=== PATIENT | male | born 1955 | race Caucasian/White ===

== ENCOUNTER → 2020-02-26 09:40 | Outpatient (BNVA) | payer OTHER, SELFPAY | PROVIDERS: Family Provider Nurse Practitioner; PCP Nurse Practitioner; Visit Provider Nurse Practitioner | DX: E78.2 Mixed hyperlipidemia (principal); I10 Essential (primary) hypertension | CPT/HCPCS: 80053; 80061; 81000 ==

== ENCOUNTER → 2020-06-16 11:42 | Outpatient (BNVA) | payer OTHER, SELFPAY | PROVIDERS: Family Provider Nurse Practitioner; PCP Nurse Practitioner; Visit Provider Nurse Practitioner | DX: R07.9 Chest pain, unspecified (principal); F41.9 Anxiety disorder, unspecified; F32.9 Major depressive disorder, single episode, unspecified | CPT/HCPCS: 71046; 80053; 82607; 84443; 84484 ==

== ENCOUNTER → 2020-07-07 11:06 | Outpatient (BNVA) | payer OTHER, SELFPAY | PROVIDERS: Family Provider Nurse Practitioner; PCP Nurse Practitioner; Visit Provider Nurse Practitioner | DX: M25.521 Pain in right elbow (principal) | CPT/HCPCS: 73080 ==

== ENCOUNTER → 2021-02-23 15:40 | Outpatient (BNVA) | payer OTHER, SELFPAY | PROVIDERS: Family Provider Nurse Practitioner; PCP Nurse Practitioner; Visit Provider Nurse Practitioner | DX: I10 Essential (primary) hypertension (principal) | CPT/HCPCS: 80053; 80061; 85025 ==

== ENCOUNTER → 2022-01-30 10:39 | Outpatient (BNVA) | payer OTHER, SELFPAY | PROVIDERS: Family Provider Nurse Practitioner; PCP Nurse Practitioner; Visit Provider Nurse Practitioner | DX: F41.9 Anxiety disorder, unspecified (principal); F32.9 Major depressive disorder, single episode, unspecified; E55.9 Vitamin D deficiency, unspecified; E78.2 Mixed hyperlipidemia; G62.9 Polyneuropathy, unspecified; I10 Essential (primary) hypertension; I69.30 Unspecified sequelae of cerebral infarction | CPT/HCPCS: 80053; 80061; 82306; 82607 ==

== ENCOUNTER → 2022-09-13 08:56 | Outpatient (BNVA) | payer OTHER, SELFPAY | PROVIDERS: Family Provider Nurse Practitioner; PCP Nurse Practitioner; Visit Provider Nurse Practitioner | DX: I10 Essential (primary) hypertension (principal); M25.511 Pain in right shoulder; E55.9 Vitamin D deficiency, unspecified; E78.5 Hyperlipidemia, unspecified; M19.011 Primary osteoarthritis, right shoulder; R91.8 Other nonspecific abnormal finding of lung field | CPT/HCPCS: 71046; 73030; 80053; 80061; 82306; 82607; 84443; 85025 ==

== ENCOUNTER → 2022-09-27 09:03 | Outpatient (BNVA) | payer OTHER, SELFPAY | PROVIDERS: Family Provider Nurse Practitioner; PCP Nurse Practitioner; Visit Provider Nurse Practitioner | DX: M25.551 Pain in right hip (principal) | CPT/HCPCS: 73502 ==

== ENCOUNTER → 2022-10-11 09:07 | Outpatient (BNVA) | payer OTHER, SELFPAY | PROVIDERS: Family Provider Nurse Practitioner; PCP Nurse Practitioner; Visit Provider Nurse Practitioner | DX: M51.37 Other intervertebral disc degeneration, lumbosacral region (principal); M25.551 Pain in right hip; M41.87 Other forms of scoliosis, lumbosacral region; M25.78 Osteophyte, vertebrae; M48.07 Spinal stenosis, lumbosacral region | CPT/HCPCS: 72100 ==

== ENCOUNTER → 2023-04-16 10:59 | Outpatient (BNVA) | payer OTHER, SELFPAY | PROVIDERS: Family Provider Nurse Practitioner; PCP Nurse Practitioner; Visit Provider Nurse Practitioner | DX: F41.9 Anxiety disorder, unspecified (principal); F32.9 Major depressive disorder, single episode, unspecified; I10 Essential (primary) hypertension; E55.9 Vitamin D deficiency, unspecified | CPT/HCPCS: 80053; 80061; 82306; 84443; 85025 ==

== ENCOUNTER → 2023-07-18 10:29 | Outpatient (BNVA) | payer OTHER, SELFPAY | PROVIDERS: Family Provider Nurse Practitioner; PCP Nurse Practitioner; Visit Provider Nurse Practitioner | DX: S92.511A Displaced fracture of proximal phalanx of right lesser toe(s), initial encounter for closed fracture (principal); X58.XXXA Exposure to other specified factors, initial encounter | CPT/HCPCS: 73630 ==

== ENCOUNTER 2023-07-26 09:52 | Outpatient (CLI) | payer OTHER, SELFPAY ==
--- NOTE | 2023-07-26 10:15 | US_ITS ---
WS: [id number] ULTRASOUND SOFT TISSUES LEFT posterior thigh. HISTORY: R22.42 - Localized swelling, mass and lump, left lower limb COMPARISON: None available. TECHNIQUE: 2-D and color Doppler imaging is submitted. Ultrasound is directed to the posterior upper LEFT thigh in the area of clinical concern. There is a hypoechoic slightly irregular mass measuring 4 x 6 x 4 mm corresponding to the palpable abnormality. There is no tract extending superficial. There is mild increased vascularity. No additional abnormali ty. IMPRESSION: Irregular subcutaneous soft tissue mass in the posterior LEFT upper thigh. Mass measures 4 x 6 x 4 mm . Very nonspecific. This may be from a prior injury or epidermoid. If this mass is causing pain or is increasing in size recommend further evaluation by MRI with and without contrast.
== END 2023-07-26 09:53 | disposition home or self-care (01) ==
LOC: RAD 09:53
PROVIDERS: PCP Nurse Practitioner; Visit Provider Nurse Practitioner
DX: R22.42 Localized swelling, mass and lump, left lower limb (principal)
CPT/HCPCS: 76882

== ENCOUNTER 2023-09-07 08:58 | Outpatient (CLI) | payer OTHER, SELFPAY ==
--- NOTE | 2023-09-07 09:30 | MR_ITS ---
WS: [email or web address] MRI LEFT LOWER EXTREMITY WITH AND WITHOUT CONTRAST. COMPARISON: Ultrasound 07/26/2023 Multiplanar, multisequence imaging is performed with and without contrast. MultiHance 18 mL. Marker is placed along the posterior upper LEFT thigh in the area of the palpable abnormality. There is a very subtle change in signal intensity within the saphenous fat at the level of the marker. This corresponds to the abnormality on ultrasound. There is no enhancement are no displacement of the sof t tissues. No discrete mass. This abnormality appears less conspicuous by MRI. This may be an area of fat necrosis which is resolving. The remaining LEFT lower extremity from the hip to the knee is negative. The soft tissues are normal. There is no joint effusion at the hip. Muscle bundles appear appropriate. There is no marrow edema o r expansion. No areas of abnormal enhancement. IMPRESSION: 1. No discrete identifiable mass in the subcu soft tissues of the posterior upper LEFT thigh. 2. There is an area of very slight change in signal intensity in the posterior soft tissue of the up per thigh. This does correspond to the finding on the recent ultrasound. Most likely this is with an area of fat necrosis which is resolving. 3. The remaining soft tissues and osseous structures are negative.
[2023-09-07] MEDS: gadobenate dimeglumine 20 mL vial IV (10:18)
== END 2023-09-07 08:59 | disposition home or self-care (01) ==
LOC: RAD 08:59
PROVIDERS: PCP Nurse Practitioner; Visit Provider Nurse Practitioner
DX: R22.42 Localized swelling, mass and lump, left lower limb (principal)
CPT/HCPCS: 73720; A9577

== ENCOUNTER → 2023-11-22 11:18 | Outpatient (BNVA) | payer OTHER, SELFPAY | PROVIDERS: PCP Nurse Practitioner; Visit Provider Nurse Practitioner Family | DX: M25.50 Pain in unspecified joint (principal); R53.83 Other fatigue; Z91.89 Other specified personal risk factors, not elsewhere classified; W57.XXXA Bitten or stung by nonvenomous insect and other nonvenomous arthropods, initial encounter; Z86.19 Personal history of other infectious and parasitic diseases; R19.7 Diarrhea, unspecified | CPT/HCPCS: 80053; 85025; 86618; 86666; 86757 ==

== ENCOUNTER → 2024-01-16 11:46 | Outpatient (BNVA) | payer OTHER, SELFPAY | PROVIDERS: PCP Nurse Practitioner; Visit Provider Nurse Practitioner | DX: I10 Essential (primary) hypertension (principal); E78.2 Mixed hyperlipidemia | CPT/HCPCS: 80053; 80061; 85025 ==

== ENCOUNTER → 2024-02-06 10:21 | Outpatient (BNVA) | payer OTHER, SELFPAY | PROVIDERS: PCP Nurse Practitioner; Visit Provider Nurse Practitioner Family | DX: M16.11 Unilateral primary osteoarthritis, right hip (principal) | CPT/HCPCS: 73502 ==

== ENCOUNTER → 2024-03-03 10:56 | Outpatient (BNVA) | payer OTHER, SELFPAY | PROVIDERS: PCP Nurse Practitioner; Visit Provider Nurse Practitioner | DX: M54.16 Radiculopathy, lumbar region; M25.551 Pain in right hip | CPT/HCPCS: 73502 ==

== ENCOUNTER 2024-03-31 10:58 | Outpatient (CLI) | payer OTHER, SELFPAY ==
--- NOTE | 2024-03-31 11:45 | MR_ITS ---
WS: [id number] MRI RIGHT HIP WITHOUT CONTRAST. COMPARISON: 03/03/2024 radiograph Multiplanar, multisequence imaging is performed without contrast. No fractures or marrow edema involving the RIGHT hip. Mild diffuse cortical irregularity along the omalley rface of the femoral head and also the acetabulum. This is predominantly along the superior most aspe ct of the femoral head. No joint effusion. No displacement of the femoral head from the acetabulum. S mall cortical defect along the superior lateral acetabulum with loss of the normal overlying cartilag e. No free fluid in the pelvis. No adenopathy. Prostate gland is heterogeneous and slightly enlarged. MR/MR hip RT wo con* [id number] IMPRESSION: 1. No fracture or marrow edema. 2. Cortical irregularity involving the superior surface of the RIGHT femoral h ead. 3. Additional small cortical erosion with loss of cartilage along the superior lateral acetabulum.
== END 2024-03-31 10:59 | disposition home or self-care (01) ==
LOC: RAD 10:59
PROVIDERS: PCP Nurse Practitioner; Visit Provider Nurse Practitioner Family
DX: M25.551 Pain in right hip (principal); G89.29 Other chronic pain
CPT/HCPCS: 73721

== ENCOUNTER → 2024-04-01 15:06 | Outpatient (BNVA) | payer MEDICARE, SELFPAY | PROVIDERS: PCP Nurse Practitioner; Visit Provider Orthopaedic Surgery | DX: M54.16 Radiculopathy, lumbar region (principal) | CPT/HCPCS: 72110; 99204 ==

== ENCOUNTER 2024-05-09 12:58 | Outpatient (CLI) | payer MEDICARE, SELFPAY ==
--- NOTE | 2024-05-09 13:00 | MR_ITS ---
WS: [email or web address] MRI LUMBAR SPINE NONCONTRAST TECHNIQUE: Sagittal T1, T2 and STIR imaging. Axial T1 and T2 imaging. CLINICAL INFORMATION: lumbar and hip pain COMPARISON: None. FINDINGS: Mild lumbar curve. No acute compression. Disc bulging worse at L4-L5 and L5-S1. Slight retrolisthesis L5 on S1. L1-L2: Narrowing LEFT subarticular recess with crowding of the traversing LEFT L2 nerve root. Mild fa cet arthropathy. Mild LEFT foraminal narrowing. L2-L3: Mild annular bulging. Narrowing of the LEFT subarticular recess. Mild facet arthropathy. Yeimi en are patent. L3-L4: Mild annular bulging. Mild central canal stenosis. Impingement of the LEFT subarticular recess and traversing LEFT L4 nerve root. Moderate facet arthropathy. Mild LEFT greater than RIGHT foramina l narrowing. L4-L5: RIGHT subarticular disc protrusion L4-5 impinges the traversing RIGHT L5 nerve root with mild to moderate central canal stenosis. Moderate facet arthropathy with ligamentum flavum hypertrophy. Mi ld RIGHT and no significant LEFT foraminal narrowing. L5-S1: Slight retrolisthesis. Shallow central protrusion with slight contact of the traversing S1 ner ve roots bilaterally. Moderate facet arthropathy. Moderate RIGHT and mild LEFT foraminal narrowing. Visualized pelvic bony structures: Normal. Paravertebral soft tissues: Normal. MR/MR lumbar spine wo con* [id number] IMPRESSION: 1. Mild lumbar curve. No acute compression. 2. RIGHT subarticular disc protrusion L4-5 impinges the traversing RIGHT L5 ne rve root in the subarticular recess. Mild to moderate central canal stenosis. 3. Mild RIGHT L4-5 foraminal narrowing. 4. Mild central canal stenosis L3-4 with impingement on the traversing LEFT L4 nerve root in the subarticular recess. 5. Moderate RIGHT L5-S1 foraminal narrowing. 6. Shallow central protrusion L5-S1 slightly contacts the traversing RIGHT gre ater than LEFT S1 nerve roots. 7. Moderate facet arthropathy L3-L5.
== END 2024-05-09 12:59 | disposition home or self-care (01) ==
LOC: RAD 12:58
PROVIDERS: PCP Nurse Practitioner; Visit Provider Orthopaedic Surgery
DX: M54.16 Radiculopathy, lumbar region (principal); M47.896 Other spondylosis, lumbar region; M51.26 Other intervertebral disc displacement, lumbar region; M99.63 Osseous and subluxation stenosis of intervertebral foramina of lumbar region
CPT/HCPCS: 72148

== ENCOUNTER → 2024-06-19 09:34 | Outpatient (BNVA) | payer MEDICARE, SELFPAY | PROVIDERS: PCP Nurse Practitioner; Visit Provider Nurse Practitioner | DX: Z12.5 Encounter for screening for malignant neoplasm of prostate (principal); I10 Essential (primary) hypertension | CPT/HCPCS: 80053; 80061; G0103 ==

== ENCOUNTER → 2024-12-24 13:46 | Outpatient (BNVA) | payer MEDICARE, SELFPAY | PROVIDERS: PCP Nurse Practitioner; Visit Provider Nurse Practitioner | DX: I10 Essential (primary) hypertension (principal); E78.2 Mixed hyperlipidemia | CPT/HCPCS: 80053; 80061 ==